=== PATIENT | female | born 1995 | race American Indian/Alaskan Native ===

== ENCOUNTER 2019-07-26 16:33 | Emergency (ER) | payer SELFPAY ==
[~2019-07-26] VITALS: Ht 175.3 cm; Wt 84.9 kg
[2019-07-26 16:34] VITALS: BP 142/86
[2019-07-26] MEDS ORDERED: VALT1TAB PO (16:39)
[2019-07-26] MEDS ORDERED: MULT-90 PO (16:39)
[2019-07-26] MEDS ORDERED: GNPTAB35 PO (16:39)
== END 2019-07-26 17:19 | disposition home or self-care (01) ==
LOC: M ED 16:33
DX: J02.8 Acute pharyngitis due to other specified organisms (principal); M54.2 Cervicalgia; R07.0 Pain in throat; T76.11XA Adult physical abuse, suspected, initial encounter; Y92.89 Other specified places as the place of occurrence of the external cause; Z79.899 Other long term (current) drug therapy

== ENCOUNTER 2019-10-31 23:11 | Emergency (ER) | payer OTHER ==
[~2019-10-31 23:11] MED LIST: GNPTAB35 PO; MULT-90 PO; VALT1TAB PO
[2019-11-01] MEDS ORDERED: METOCLOPRAMIDE INJ 10MG/2ML VIAL (J2765 PER 1) ONE (01:44)
[2019-11-01] MEDS ORDERED: diphenhydrAMINE 50MG/ML VIAL (J1200) ONE (01:44)
[2019-11-01] MEDS ORDERED: KETOROLAC 30 MG/ML 1ML VIAL ONE (01:44)
[2019-11-01] MEDS ORDERED: GI COCKTAIL 50ML BTL(HYOSCYAMINE/MAALOX/LIDOCAINE VISCOUS)(1:3:1) ONE (01:44)
== END 2019-11-01 03:40 | disposition home or self-care (01) ==
LOC: M ED 23:11
DX: G43.909 Migraine, unspecified, not intractable, without status migrainosus (principal); F12.10 Cannabis abuse, uncomplicated; Z79.899 Other long term (current) drug therapy
CPT/HCPCS: 96374; 96375; 99284; J1200; J1885; J2765

== ENCOUNTER 2019-11-08 17:48 | Emergency (ER) | payer OTHER ==
[2019-11-08] MEDS ORDERED: ISOVUE-370 76% 100ML VIAL ONE (20:00)
[2019-11-08] MEDS ORDERED: dexameTHASONE 4 MG/ML 1ML VIAL (J1100 PER 1MG) ONE (20:00)
[2019-11-08] MEDS ORDERED: ONDANSETRON 4MG/2ML VIAL ONE (20:10)
[2019-11-08] MEDS ORDERED: MORPHINE 2 MG/ML 1ML VIAL (J2270) ONE (20:10)
[2019-11-08] MEDS ORDERED: UNASYN 3 GM VIAL ONE (20:10)
[2019-12-27 20:54] LABS: BASO # 0.1 10^3/uL (0.0-0.2); BASO % 0.6 % (0.0-1.0); EOS # 0.3 10^3/uL (0.0-0.5); HEMATOCRIT 40.7 % (36.0-47.0); LYMPH # 2.5 10^3/uL (1.5-5.0); LYMPH % 22.7 % (24.0-44.0); MEAN CORPUSCULAR HEMOGLOBIN 27.4 pg (27.0-33.0); MEAN CORPUSCULAR HGB CONC 31.9 g/dl (32.0-36.5); MEAN CORPUSCULAR VOLUME 85.7 fl (80.0-96.0); MONO # 0.8 10^3/uL (0.0-0.8); MONO % 7.6 % (0.0-5.0); NEUTROPHILS # 7.1 10^3/uL (1.5-8.5); NEUTROPHILS % 65.8 % (36.0-66.0); PLATELET COUNT, AUTOMATED 310 10^3/uL (150-450); RED BLOOD COUNT 4.75 10^6/uL (4.00-5.40); WHITE BLOOD COUNT 10.8 10^3/uL (4.0-10.0)
[2019-12-27 20:55] LABS: ERYTHROCYTE SEDIMENTATION RATE 32 mm/hr (0-20)
[2020-01-31 05:01] LABS: ALT/SGPT 112 U/L (12-78); BILIRUBIN,DIRECT 0.2 MG/DL (0.0-0.2); BILIRUBIN,TOTAL 0.5 MG/DL (0.2-1.0); BLOOD UREA NITROGEN 10 MG/DL (7-18); C REACTIVE PROTEIN QUANTITATIV 2.19 MG/DL (0.00-0.30); CALCIUM LEVEL 9.2 MG/DL (8.5-10.1); CARBON DIOXIDE LEVEL 27 MEQ/L (21-32); CHLORIDE LEVEL 106 MEQ/L (98-107); CREATININE FOR GFR 0.78 MG/DL (0.55-1.30); GLOMERULAR FILTRATION RATE > 60.0 (>60); GLUCOSE, FASTING 77 MG/DL (70-100); POTASSIUM SERUM 3.9 MEQ/L (3.5-5.1); SODIUM LEVEL 138 MEQ/L (136-145)
[2020-01-31 05:04] LABS: HCG, SERUM QUALITATIVE NEGATIVE (NEGATIVE)
== END 2019-11-08 21:18 | disposition home or self-care (01) ==
LOC: M ED 17:48
DX: K04.7 Periapical abscess without sinus (principal); R11.0 Nausea; J01.00 Acute maxillary sinusitis, unspecified; J32.2 Chronic ethmoidal sinusitis; Z20.828 Contact with and (suspected) exposure to other viral communicable diseases; Z79.899 Other long term (current) drug therapy; Z11.59 Encounter for screening for other viral diseases
CPT/HCPCS: 70487; 80048; 80076; 83605; 84703; 85025; 85652; 86140; 87040; 96374; 96375; 99284; J1100; J2270; J2405; Q9967; U0002

== ENCOUNTER 2020-05-12 07:29 | Emergency (ER) | payer OTHER, SELFPAY ==
[~2020-05-12] VITALS: Ht 175.3 cm; Wt 81.8 kg
[2020-05-12] MEDS ORDERED: LEXA1TAB PO (07:34)
--- OUTSIDE RECORDS SUMMARY | 2020-05-12 07:34 | CCD ---
Author Author [facility] Address Unknown Phone Unavailable Support Name Relationship Address Phone EYAD COLON Next Of Kin [address] [place] [address] FABIEN MICHELE Next Of Kin [address] [place] [address] UE Next Of Kin Unknown Unavailable ANYA MUNGUIA Next Of Kin [address] [place] [address] Re-disclosure Warning The records that you are about to access may contain information from federally-assisted alcohol or drug abuse programs. If such information is present, then the following federally mandated warning applies: This information has been disclosed to you from records protected by federal confidentiality rules (42 CFR part 2). The federal rules prohibit you from making any further disclosure of this information unless further disclosure is expressly permitted by the written consent of the person to whom it pertains or as otherwise permitted by 42 CFR part 2. A general authorization for the release of medical or other information is NOT sufficient for this purpose. The Federal rules restrict any use of the information to criminally investigate or prosecute any alcohol or drug abuse patient.The records that you are about to access may contain highly sensitive health information, the redisclosure of which is protected by Article 27-F of the [facility] Public Health law. If you continue you may have access to information: Regarding HIV / AIDS; Provided by facilities licensed or operated by the [facility] Office of Mental Health; or Provided by the [facility] Office for People With Developmental Disabilities. If such information is present, then the following [facility] mandated warning applies: This information has been disclosed to you from confidential records which are protected by state law. State law prohibits you from making any further disclosure of this information without the specific written consent of the person to whom it pertains, or as otherwise permitted by law. Any unauthorized further disclosure in violation of state law may result in a fine or senior care sentence or both. A general authorization for the release of medical or other information is NOT sufficient authorization for further disc losure. Medications Medication Brand Name Start Date Product Form Dose Route Admi nistrative Instructions Pharmacy Instructions Status Indications Reaction Description Data Source(s) Escitalopram 5 MG Oral Tablet ESCITALOPRAM OXALATE 09/26/2019 12 :00:00 AM EDT tablet 30 TAKE ONE TABLET BY MOUTH EVERY M ORNING TAKE ONE TABLET BY MOUTH EVERY MORNING SOLD: 09/26/2019 Ibeth Ferrara Insurance Providers Payer name Policy type / Coverage type Policy ID Covered constitution party ID Covered constitution party's relationship to long Policy Long Plan Information [facility] [id number] SP [id number] SELF PAY ONLY [id number] SP [id number] [facility] [id number] P [id number]
--- OUTSIDE RECORDS SUMMARY | 2020-05-12 07:59 | CCD ---
Author Author [facility] Organization [facility] Address Unknown Phone Unavailable Support Name Relationship Address Phone EYAD COLON Next Of Kin [address] [place] [address] FABIEN MICHELE Next Of Kin [address] [place] [address] UE Next Of Kin Unknown Unavailable ANYA MUNGUIA Next Of Kin [address] [place] [address] [phone] Re-disclosure Warning The records that you are [...] is protected by Article 27-F of the [facility] Public Health law. If you continue you may have access to information: Regarding HIV / AIDS; Provided by facilities licensed or operated by the [facility] Office of Mental Health; or Provided by the [facility] Office for People With Developmental Disabilities. If such information is present, then the following [facility] mandated warning applies: This information has been [...] law may result in a fine or assisted sentence or both. A general authorization for [...] type / Coverage type Policy ID Covered libertarian ID Covered libertarian's relationship to long Policy Long Plan Information SELF PAY ONLY [id number] SP [id number] [facility] [id number] [facility] [id number]
--- NOTE | 2020-05-12 08:21 | REP ---
INDICATION: trauma. COMPARISON: None. TECHNIQUE: Three views including AP, tube angled, and lateral projections. FINDINGS: Sacrum and coccyx appear intact. No displacement, angulation, or fracture is seen. Presacral soft tissues do not appear widened. The SI joints are normally aligned. Symphysis pubis is intact. No pelvic or sacral fracture is seen. Psoas margins are symmetric. IMPRESSION: Negative radiographs of the sacrum and coccyx. No fracture seen. <Electronically signed by Fransisco Goins > 05/12/20 [id number]
[2020-05-12] MEDS ORDERED: methylPREDNISolone 125MG 2ML VIAL IM ONE (08:30)
[2020-05-12 08:35] VITALS: BP 127/74
== END 2020-05-12 08:45 | disposition home or self-care (01) ==
LOC: M ED 07:29
DX: S30.0XXA Contusion of lower back and pelvis, initial encounter (principal); W00.9XXA Unspecified fall due to ice and snow, initial encounter; Y92.099 Unspecified place in other non-institutional residence as the place of occurrence of the external cause; Y93.9 Activity, unspecified; Y99.9 Unspecified external cause status; M54.40 Lumbago with sciatica, unspecified side; F12.10 Cannabis abuse, uncomplicated; Z79.899 Other long term (current) drug therapy
CPT/HCPCS: 72220; 96372; 99283; J2930

== ENCOUNTER 2021-02-21 12:45 | Emergency (ER) | payer OTHER, SELFPAY ==
[~2021-02-21] VITALS: Ht 175.3 cm; Wt 85.9 kg
[~2021-02-21 12:45] MED LIST changes: +LEXA1TAB PO
--- OUTSIDE RECORDS SUMMARY | 2021-02-21 12:51 | CCD ---
Author Author [facility] Address Unknown Phone Unavailable Care Team Providers Care Store Sales Manager Name Role Phone Green COMPLAINT EVALUATION OFFICER COMPLAINT EVALUATION OFFICER, Amelia Unavailable Unavailable Green COMPLAINT EVALUATION OFFICER COMPLAINT EVALUATION OFFICER, Amelia Unavailable Unavailable Green COMPLAINT EVALUATION OFFICER COMPLAINT EVALUATION OFFICER, Amelia Unavailable Unavailable Green COMPLAINT EVALUATION OFFICER COMPLAINT EVALUATION OFFICER, Amelia Unavailable Unavailable Green COMPLAINT EVALUATION OFFICER COMPLAINT EVALUATION OFFICER, Amelia Unavailable Unavailable Dwello PA PA, Amira Unavailable Unavailable Dwello PA PA, Amira Unavailable Unavailable Dwello PA PA, Amira Unavailable Unavailable Dwello PA PA, Amira Unavailable Unavailable Dwello PA PA, Amira Unavailable Unavailable Dwello PA PA, Amira Unavailable Unavailable Dwello PA PA, Amira Unavailable Unavailable Re-disclosure Warning The records that you are [...] is protected by Article 27-F of the [place] Public Health law. If you continue you may have access to information: Regarding HIV / AIDS; Provided by facilities licensed or operated by the [facility] Office of Mental Health; or Provided by the [facility] Office for People With Developmental Disabilities. If such information is present, then the following [facility] mandated warning applies: This information has been [...] law may result in a fine or detention sentence or both. A general authorization for the release of medical or other information is NOT sufficient authorization for further disc losure. Family History Family Member Name Family Member Gender Family Member Status Date o f Status Description Data Source(s) Unknown Female Diagnosis 11/11/2020 12:00:00 AM EDT [facility] ([facility]) Unknown Female Diagnosis 11/11/2020 12:00:00 AM EDT [facility] ([facility]) Encounters Encounter Providers Location Date Indications Data Source(s ) [facility] [place] 01/13/2021 02:45:00 PM EDT - 01/13/2021 02:45:00 PM EDT Other sex counselingEncounter for oth general cnsl and advice on contraceptionUrgency of urinationFrequency of micturitionEncntr screen for infections w sexl mode of transmissEncounter for test, result negativeDysuriaHesitancy of micturition [facility] ([facility]) Other sex counseling Encounter for oth general cnsl and advic e on contraception Urgency of urination Frequency of micturition Encntr screen for infections w sexl mode of transmiss Encounter for test, result neg ative Dysuria Hesitancy of micturition [facility] Amelia Hare NP, NP PPNCEV [place] 11/11/2020 10:30:00 AM EDT - 11/11/2020 10:30:00 AM EDT Herpesviral vulvovaginitisOther sex counselingEncounter for oth general cnsl and advice on contraceptionEncounter for test, result negativeHuman immunodeficiency virus [HIV] counseling [facility] ([facility]) Herpesviral vulvovaginitis Other sex counseling Encounter for oth general cnsl and advic e on contraception Encounter for test, result neg ative Human immunodeficiency virus [HIV] couns eling Immunizations Vaccine Date Status Description Data Source(s) COVID-19 VACCINE Moderna 07/09/2020 12:00:00 AM EDT completed [facility] Vaccine Series Complete: YESThis Data wa s Submitted to [facility] Via flexReceipts. COVID-19 VACCINE Moderna 06/11/2020 12:00:00 AM EDT completed [facility] Vaccine Series Complete: NOThis Data was Submitted to [facility] Via flexReceipts. Medications Medication Brand Name Start Date Product Form Dose Route Admi nistrative Instructions Pharmacy Instructions Status Indications Reaction Description Data Source(s) NITROFURANTOIN, MACROCRYSTALS 25 MG / Ni trofurantoin, Monohydrate 75 MG Oral Capsule [Macrobid] Macrobid 100 mg capsule Macrobid 100 mg capsule 01/13/2021 12:00:00 AM EDT 1.00 {capsule} ORAL active nitrofurantoin, macrocrystals 25 MG / nitrofurantoin, monohydrate 75 MG Oral Capsule [Macrobid] [facility] ([facility]) Phenazopyridine hydrochloride 200 MG Ora l Tablet [Pyridium] Pyridium 200 mg tablet Pyridium 200 mg tablet 01/13/2021 12:00:00 AM EDT active phenazopyridine hydrochloride 200 MG Oral Tablet [Pyridium] [facility] ([facility]) valacyclovir 500 MG Oral Tablet valacyclovir 500 mg ta blet valacyclovir 500 mg tablet 11/11/2020 12:00:00 AM EDT active 1 tab po bid x 3d for outbreak (#6) [facility] ([facility]) Insurance Providers Payer name Policy type / Coverage type Policy ID Covered democrat ID Covered democrat's relationship to long Policy Long Plan Information SELF PAY ONLY [id number] SP [id number] [facility] [id number] P [id number] [facility] [id number] SP [id number] Problems, Conditions, and Diagnoses No Information Surgeries/Procedures Procedure Description Date Indications Data Source(s) CVR Wrapper Rewinder.Svc. STI / H 01/13/2021 12:00:00 AM EDT - 01/13/2021 12:00:00 AM EDT [facility] ([facility]) CVR Wrapper Rewinder.Svc. Contraceptive 01/13/2021 12 :00:00 AM EDT - 01/13/2021 12:00:00 AM EDT [facility] ([facility]) CVR Med.Svc. Method Initiation 12:00:00 AM EDT - 01/13/2021 12:00:00 AM EDT [facility] ([facility]) CVR Med.Svc. UTI Treatment 01/13/2021 12 :00:00 AM EDT - 01/13/2021 12:00:00 AM EDT [facility] ([facility]) CVR Med.Svc. Height/Weight 01/13/2021 12 :00:00 AM EDT - 01/13/2021 12:00:00 AM EDT [facility] ([facility]) CVR Blood Pressure 01/13/2021 12:00:00 AM EDT - 2020 12:00:00 AM EDT [facility] ([facility]) URINE CULTURE/COLONY COUNT 01/13/2021 12 :00:00 AM EDT - 01/13/2021 12:00:00 AM EDT [facility] ([facility]) N.GONORRHOEAE, URINE 01/13/2021 12:00:00 AM EDT - 01/13/2021 12:00:00 AM EDT [facility] ([facility]) CHYLMD TRACH, URINE 01/13/2021 12:00:00 AM EDT - 01/13 12:00:00 AM EDT [facility] ([facility]) OFFICE VISIT, EST 01/13/2021 12:00:00 AM EDT - 01/13/2 021 12:00:00 AM EDT [facility] ([facility]) URINE TEST 01/13/2021 12:00:00 AM EDT - 01/13/2021 12:00:00 AM EDT [facility] ([facility]) URINALYSIS NONAUTO W/O SCOPE 01/13/2021 12:00:00 AM EDT - 01/13/2021 12:00:00 AM EDT [facility] ([facility]) CVR Wrapper Rewinder.Svc. STI / H 11/11/2020 12:00:00 AM EDT - 11/11/2020 12:00:00 AM EDT [facility] ([facility]) CVR Wrapper Rewinder.Svc. Other 11/11/2020 12:00:00 AM EDT - 2020 12:00:00 AM EDT [facility] ([facility]) CVR Wrapper Rewinder.Svc. Contraceptive 11/11/2020 12 :00:00 AM EDT - 11/11/2020 12:00:00 AM EDT [facility] ([facility]) CVR Med.Svc. Height/Weight 11/11/2020 12 :00:00 AM EDT - 11/11/2020 12:00:00 AM EDT [facility] ([facility]) CVR Blood Pressure 11/11/2020 12:00:00 AM EDT - 2020 12:00:00 AM EDT [facility] ([facility]) HCS Without Test 11/11/2020 12:00:00 AM EDT - 11/12/19 21 12:00:00 AM EDT [facility] ([facility]) OFFICE VISIT, NEW 11/11/2020 12:00:00 AM EDT - 021 12:00:00 AM EDT [facility] ([facility]) URINE TEST 11/11/2020 12:00:00 AM EDT - 11/11/2020 12:00:00 AM EDT [facility] ([facility]) Results ID Date Data Source [id number] 01/13/2021 03:07:33 PM EDT [facility] ([facility]) Name Value Range Interpretation Code Description Data Kalyani rce(s) Supporting Document(s) NegativeLot: [id number]: 05/16/2022 High Sensitivity Urine Test [facility] ([facility]) ID Date Data Source [id number] 01/13/2021 03:06:26 PM EDT [facility] ([facility]) Name Value Range Interpretation Code Description Data Kalyani rce(s) Supporting Document(s) Color: yellow; Glucose: nega tive; Blood: negative; pH: 7.0; Protein: trace; Nitrite: negative; Leukocytes: negative Abnormal (appl ies to non-numeric results) Urine Dipstick [facility] ([facility]) ID Date Data Source [id number] 01/13/2021 12:00:00 AM EDT [facility] ([facility]) Name Value Range Interpretation Code Description Data Kalyani rce(s) Supporting Document(s) Negative Normal (applies to non-numeric resul ts) Urine CT/GC Combo - GC [facility] ([facility]) : NoThis information has been di sclosed to you from confidential records which are protected by law. Privacy laws prohibityou from making any further disclosure of this information without the specific written consent of the person to whom itpertains, or otherwise permitted by law. Any unauthorized further disclosure in violation of the law may result in a fineor detention sentence or both. A general authorization for the release of medical or other information is not, except inlimited circumstances set forth in this part, sufficient authorization for further disclosure.This document contains private and confidential health information protected by state and federal law. If youhave received this document in error, please call the Electrical Laboratory Technician for [facility] at ext [phone] [email or web address] Performed by: TANIA ([id number]) ID Date Data Source [id number] 01/13/2021 12:00:00 AM EDT [facility] ([facility]) Name Value Range Interpretation Code Description Data Kalyani rce(s) Supporting Document(s) Negative Normal (applies to non-numeric resul ts) Urine CT/GC Combo - CT [facility] ([facility]) ID Date Data Source [id number] 11/11/2020 11:11:07 AM EDT [facility] ([facility]) Name Value Range Interpretation Code Description Data Kalyani rce(s) Supporting Document(s) NegativeLot: [id number]: 03/28/2022 High Sensitivity Urine Test [facility] ([facility]) Procedure Social History Code Duration Value Status Description Data Source(s ) Smoking 01/13/2021 12:00:00 AM EDT Never smoker completed Never s moker [facility] ([facility]) 11/11/2020 12:00:00 AM EDT Current non-smoker completed C urrent non-smoker [facility] ([facility]) Vital Signs ID Date Data Source UNK Name Value Range Interpretation Code Description Data Source(s) Body height 176.53 cm 176.53 cm [facility]) Body weight 86.636 kg 86.636 kg [facility] ([facility]) Systolic blood pressure 118 mm[Hg] 118 mm[Hg] N [facility] ([facility]) Diastolic blood pressure 80 mm[Hg] 80 mm[Hg] [facility] ([facility]) Body mass index (BMI) [Ratio] 27.80 kg/m2 Overweight 27.80 kg/m2 [facility]) Body height 176.53 cm 176.53 cm [facility] ([facility]) Body weight 84.096 kg 84.096 kg [facility] ([facility]) Systolic blood pressure 117 mm[Hg] 117 mm[Hg] N [facility] ([facility]) Diastolic blood pressure 70 mm[Hg] 70 mm[Hg] [facility] ([facility]) Body mass index (BMI) [Ratio] 26.99 kg/m2 Overweight 26.99 kg/m2 [facility] ([facility]) Patient Treatment Plan of Care Planned Activity Planned Date Details Description Data Source (s) Phenazopyridine hydrochloride 200 MG Oral Tablet [Pyri dium] 01/13/2021 12:00:00 AM EDT [facility] NITROFURANTOIN, MACROCRYSTALS 25 MG / Ni trofurantoin, Monohydrate 75 MG Oral Capsule [Macrobid] 01/13/2021 12:00:00 AM EDT Ne [facility] ([facility]) valacyclovir 500 MG Oral Tablet 11/11/2020 12:00:00 AM EDT [facility] ([facility])
--- OUTSIDE RECORDS SUMMARY | 2021-02-21 12:51 | CCD | Continuity of Care Document ---
Author Author [facility] Organization [facility] Address Unknown Phone Unavailable Care Team Providers Care .Net Developer Name Role Phone Dwello Amira EARL Unavailable Unavailable Allergies, Adverse Reactions, Alerts Substance Reaction Status Criticality No Known Allergies Active No Information Medications Medication Instructions Dosage Effective Dates (start - stop) Sta tus Comments Macrobid 100 mg capsule take 1 capsule by oral route every 12 hours with food 100 MG - Active Pyridium 200 mg tablet take 1 tablet by oral route 3 times every day after meals as needed x 2 days - Active valacyclovir 500 mg tablet 1 tab po bid x 3d for outbreak (#6) - Active Lexapro 20 mg tablet take 1 tablet by oral route every day 20 MG - Active buspirone 30 mg tablet take 1 tablet by oral route 2 times every da y 30 MG - Active Problems Condition Effective Dates (start - stop) Clinical Status C omments Hesitancy of micturition Dysuria Encounter for test, result negative Encntr screen for infections w sexl mode of transmiss Frequency of micturition Urgency of urination Encounter for oth general cnsl and advice on contraception Other sex counseling - Human immunodeficiency virus [HIV] counseling Encounter for test, result negative Encounter for oth general cnsl and advice on contraception Other sex counseling Herpesviral vulvovaginitis Procedures Procedure Date URINALYSIS NONAUTO W/O SCOPE URINE TEST OFFICE VISIT, EST CHYLMD TRACH, URINE N.GONORRHOEAE, URINE URINE CULTURE/COLONY COUNT CVR Blood Pressure CVR Med.Svc. Height/Weight CVR Med.Svc. UTI Treatment CVR Med.Svc. Method Initiation CVR Director Of Curriculum And Instruction.Svc. Contraceptive CVR Director Of Curriculum And Instruction.Svc. STI / H Results Test Name Date and Time Measure Units Reference Range Abnormal Flag St atus Comments Panel Description: Chlamydia trachomatis rRNA [Presence] in Specimen by GRISEL with probe detection Final Urine CT/GC Combo - CT 00:00:00 Negative N Final Performed by:
CDD ([id number])

Panel Description: Amplified GC - Urine Final Urine CT/GC Combo - GC 00:00:00 Negative N Final : NoThis information has been disclosed to you from confidential records which are protected by law. Privacy laws prohibityou from making any further disclosure of this information without the specific written consent of the person to whom itpertains, or otherwise permitted by law. Any unauthorized further disclosure in violation of the law may result in a fineor senior care sentence or both. A general authorization for the release of medical or other information is not, except inlimited circumstances set forth in this part, sufficient authorization for further disclosure.This document contains private and confidential health information protected by state and federal law. If youhave received this document in error, please call the Super[employer] for CDD at ext [phone] ore-mail [email or web address]

Performed by:
CDD ([id number])

Panel Description: High Sensitivity Urine Test Fi nal High Sensitivity Urine Test 15:07:33 N egativeLot: [id number]: 05/16/2022 Final Panel Description: Urine Dipstick Final Urine Dipstick 15:06:26 Color: yellow; Gluc ose: negative; Blood: negative; pH: 7.0; Protein: trace; Nitrite: negative; Leukocytes: negative A Final Advance Directives Directive Yes / No Effective Date File Name No Information Encounters Encounter Description Practice Location Reason(s) For Visit Diagnose s Date Provider Providers Copied on Encounter [facility]IT, [facility], [address] [place] [address], [address] [place] [address], tel:[phone] [facility] Urinary Symptoms ( F) (chief complaint) Hesitancy of micturitionDysuriaEncounter for test, result negativeEncntr screen for infections w sexl mode of transmissFrequency of micturitionUrgency of urinationEncounter for oth general cnsl and advice on contraceptionOther sex counseling Dave Pollard. [address] [place] [address], [id number], . tel:[phone] Referring Provider: Amira Acosta, [address] [place] [address], [id number]. tel:[phone] [facility], [address] [place] [address], [id number], tel:[phone] [facility] Human immunodeficie ncy virus [HIV] counselingEncounter for test, result negativeEncounter for oth general cnsl and advice on contraceptionOther sex counselingHerpesviral vulvovaginitis Payam Jenkins. [address] [place] [address], [id number], . tel:[phone] Referring Provider: Amelia Hare, [address] [place] [address], [id number]. tel:[phone] Family History Family Member Diagnosis Age At Onset Paternal grandmother fibrosis Maternal grandmother Cancer, breast Paternal grandmother glaucoma Immunizations Vaccine Date Status Comments No Information Payers Payer name Insurance type Covered republican ID Authorization(s ) FPBP PRESUMPTIVE ELIGIBILITY [id number] Social History Type Description Quantity Date Captured Comments Alcohol Use Details Unknown Caffeine Use Details Unknown Tobacco Use Status No Information Smoking Status Never smoker Oct-18-2021 Sex Female Vital Signs Date / Time: Height Weight BMI Pulse Rate Blood Pressure Temperatu re Respiratory Rate Body Surface Area Head Circumference BMI percentile Pulse Ox In haled Ox 3:08 PM 69.50 in 191.00 lbs 27.80 kg/meter(2) 118/80 m m[Hg] Chief Complaint And Reason For Visit Most recent encounter only, dated 01/13/2021 14:45'. Urinary Symptoms (F) (chief complaint) Reason For Referral Reason For Referral No Information Plan Of Treatment Date Type Action Status No Information History Of Present Illness Encounter Date Complaint History Of Present I llness No Information Functional Status Date Functional Assessment No Information Medications Administered Medication Instructions Dosage Effective Dates (start - stop) Sta tus Comments No Information Instructions Date Instruction Additional Informati on No Information Assessments Type Assessment Date assessment Hesitancy of micturition assessment Dysuria assessment Encounter for test, result neg ative assessment Encntr screen for infections w sexl mode of transmiss assessment Frequency of micturition assessment Urgency of urination assessment Encounter for oth general cnsl and advic e on contraception Goals Health Concern Goal Type Priority Status Date No Information Medical Equipment Description Device [place] Device Identifier Effective Jacobo es (start - stop) Status No Information Mental Status Date Cognitive Assessment Orientation - Oriented to ti me, place, person, situation.Normal Orientation Health Concerns Observation Date No Information Concern Status Date No Information Physical Examination Exam Findings Details Abdomen Normal CVA tenderness - Non e. Neurological Normal Level of consciousne ss - Normal. Orientation - Normal. Psychiatric Normal Orientation - [place] ed to time, place, person & situation.
--- OUTSIDE RECORDS SUMMARY | 2021-02-21 12:51 | CCD | Continuity of Care Document ---
Author Author [facility] Organization [facility] Address Unknown Phone Unavailable Care Team Providers Care K 9 Handler/ Deputy Name Role Phone Payam SCRAP PICKER, Amelia Jenkins Unavailable Unavailable Allergies, Adverse Reactions, Alerts Substance Reaction Status Criticality No Known Allergies Active No Information Medications Medication Instructions Dosage Effective Dates (start - stop) Sta tus Comments valacyclovir 500 mg tablet 1 tab po bid x 3d for outbreak (#6) - Active Lexapro 20 mg tablet take 1 tablet by oral route every day 20 MG - Active buspirone 30 mg tablet take 1 tablet by oral route 2 times every da y 30 MG - Active Problems Condition Effective Dates (start - stop) Clinical Status C omments Human immunodeficiency virus [HIV] counseling Encounter for test, result negative Encounter for oth general cnsl and advice on contraception Other sex counseling Herpesviral vulvovaginitis Procedures Procedure Date URINE TEST OFFICE VISIT, NEW HCS Without Test CVR Blood Pressure CVR Med.Svc. Height/Weight CVR Risk And Insurance Manager.Svc. Contraceptive CVR Risk And Insurance Manager.Svc. Other CVR Risk And Insurance Manager.Svc. STI / H Results Test Name Date and Time Measure Units Reference Range Abnormal Flag St atus Comments Panel Description: High Sensitivity Urine Test Fi nal High Sensitivity Urine Test 11:11:07 N egativeLot: [id number]: 03/28/2022 Final Advance Directives Directive Yes / No Effective Date File Name No Information Encounters Encounter Description Practice Location Reason(s) For Visit Diagnose s Date Provider Providers Copied on Encounter OFFICE VISIT, NEW [facility], [address], [place], [id number], [place] tel:[phone] [facility] Genital Lesions (c hief complaint) Human immunodeficiency virus [HIV] couns elingEncounter for test, result negativeEncounter for oth general cnsl and advice on contraceptionOther sex counselingHerpesviral vulvovaginitis Payam Jenkins. [address], [place], [id number], [place]. tel:[phone] Referring Provider: Amelia Hare, [address], [place], [id number]. tel:[phone] Family History Family Member Diagnosis Age At Onset Paternal grandmother fibrosis Maternal grandmother Cancer, breast Paternal grandmother glaucoma Immunizations Vaccine Date Status Comments No Information Payers Payer name Insurance type Covered constitution party ID Authorization(s ) FPBP PRESUMPTIVE ELIGIBILITY [id number] Social History Type Description Quantity Date Captured Comments Alcohol Use Details Unknown Caffeine Use Details Unknown Tobacco Use Status Current non-smoker Smoking Status Never smoker Non-Smoking Tobacco Use Details : No Details Available : No Details Available Sex Female Vital Signs Date / Time: Height Weight BMI Pulse Rate Blood Pressure Temperatu re Respiratory Rate Body Surface Area Head Circumference BMI percentile Pulse Ox In haled Ox 11:07 AM 69.50 in 185.40 lbs 26.99 kg/meter(2) 117/7 0 mm[Hg] Chief Complaint And Reason For Visit Most recent encounter only, dated '11/11/2020 10:30'. Genital Lesions (chief complaint) Reason For Referral Reason For [...] No Information Assessments Type Assessment Date assessment Human immunodeficiency virus [HIV] couns eling assessment Encounter for test, result neg ative assessment Encounter for oth general cnsl and advic e on contraception assessment Other sex counseling assessment Herpesviral vulvovaginitis Goals Health Concern Goal Type Priority Status Date No Information Medical Equipment Description Device [place] Device Identifier Effective Jacobo es (start - stop) Status No Information Mental Status Date Cognitive Assessment Orientation - Oriented to ti me, place, person, situation.Normal Orientation Health Concerns Observation Date No Information Concern Status Date No Information Physical Examination Exam Findings Details Neurological Normal Level of consciousne ss - Normal. Orientation - Normal. Psychiatric Normal Orientation - [place] ed to time, place, person & situation.
[2021-02-21] MEDS ORDERED: KETOROLAC TROMETHAMINE 10 MG TAB PO ONE ×2 (16:25→16:40)
[2021-02-21] MEDS ORDERED: AUGMENTIN 875 MG TAB PO ONE (16:25)
[2021-02-21] MEDS ORDERED: cefTRIAXone SOD 1GM VIAL (J0696 PER 250MG) IM ONE (16:30)
[2021-02-21] MEDS ORDERED: LIDOCAINE 1% SDV 5ML VIAL DILUENT ONE (16:30)
[2021-02-21] MEDS ORDERED: methylPREDNISolone 125MG 2ML VIAL IM ONE (16:30)
[2021-02-21] MEDS ORDERED: cefTRIAXone SOD 1 GM in D5W MINI-BAG PLUS 50 ML IV ONE (16:30)
[2021-02-21] MEDS ORDERED: AUGM875T28 PO (16:40)
[2021-02-21] MEDS ORDERED: KETO10TAB PO (16:49)
--- OUTSIDE RECORDS SUMMARY | 2021-02-21 16:54 | CCD ---
Author Author [facility] Organization [facility] Address Unknown Phone Unavailable Care Team Providers Care Levers Lace Machine Operator Name Role Phone Green PER DIEM PHYSICAL THERAPIST PER DIEM PHYSICAL THERAPIST, Amelia Unavailable Unavailable Green PER DIEM PHYSICAL THERAPIST PER DIEM PHYSICAL THERAPIST, Amelia Unavailable Unavailable Green PER DIEM PHYSICAL THERAPIST PER DIEM PHYSICAL THERAPIST, Amelia Unavailable Unavailable Green PER DIEM PHYSICAL THERAPIST PER DIEM PHYSICAL THERAPIST, Amelia Unavailable Unavailable Green PER DIEM PHYSICAL THERAPIST PER DIEM PHYSICAL THERAPIST, Amelia Unavailable Unavailable Dwello PA PA, Amira [...] is protected by Article 27-F of the [place] State Public Health law. If you continue you may have access to information: Regarding HIV / AIDS; Provided by facilities licensed or operated by the [facility] Office of Mental Health; or Provided by the [facility] Office for People With Developmental Disabilities. If such information is present, then the following [facility] mandated warning applies: This information [...] law may result in a fine or alf sentence or both. A general authorization for the release of medical or other information is NOT sufficient authorization for further disc losure. Family History Family Member Name Family Member Gender Family Member Status Date o f Status Description Data Source(s) Unknown Female Diagnosis 11/11/2020 12:00:00 AM EDT [facility] ([facility]) Unknown Female Diagnosis 11/11/2020 12:00:00 AM EDT [facility] ([facility]) Encounters Encounter Providers Location Date Indications Data Source(s ) [facility] Attender: Amira EARL [facility] [place] 01/13/2021 02:45:00 PM EDT - 01/13/2021 02:45:00 PM EDT Other sex counselingEncounter for oth general cnsl and advice on contraceptionUrgency of urinationFrequency of micturitionEncntr screen for infections w sexl mode of transmissEncounter for test, result negativeDysuriaHesitancy of micturition [facility] ([facility]) Other sex counseling Encounter for oth general cnsl and advic e on contraception Urgency of urination Frequency of micturition Encntr screen for infections w sexl mode of transmiss Encounter for test, result neg ative Dysuria Hesitancy of micturition OutpatientOFFICE VISIT, NEW Attender: Amelia Hare NP, NP [facility] [place] 11/11/2020 10:30:00 AM EDT - 11/11/2020 10:30:00 AM EDT Herpesviral vulvovaginitisOther sex counselingEncounter for oth general cnsl and advice on contraceptionEncounter for test, result negativeHuman immunodeficiency virus [HIV] counseling [facility] ([facility]) Herpesviral vulvovaginitis Other sex counseling Encounter for oth general cnsl and advic e on contraception Encounter for test, result neg ative Human immunodeficiency virus [HIV] couns eling Immunizations Vaccine Date Status Description Data Source(s) COVID-19 VACCINE Moderna 07/09/2020 12:00:00 AM EDT completed [facility] Vaccine Series Complete: YESThis Data wa s Submitted to [facility] Via [employer]. COVID-19 VACCINE Moderna 06/11/2020 12:00:00 AM EDT completed [facility] Vaccine Series Complete: NOThis Data was Submitted to [facility] Via [employer]. Medications Medication Brand Name Start Date Product [...] Capsule [Macrobid] [facility] ([facility]) Phenazopyridine hydrochloride 200 MG Ora l Tablet [Pyridium] Pyridium 200 mg tablet Pyridium 200 mg tablet 01/13/2021 12:00:00 AM EDT active phenazopyridine hydrochloride 200 MG Oral Tablet [Pyridium] [facility] ([facility]) valacyclovir 500 MG Oral Tablet valacyclovir 500 mg ta blet valacyclovir 500 mg tablet 11/11/2020 12:00:00 AM EDT active 1 tab po bid x 3d for outbreak (#6) [facility] ([facility]) Insurance Providers Payer name Policy type / Coverage type Policy ID Covered democrat ID Covered democrat's relationship to long Policy Long Plan Information [facility] [id number] SP [id number] SELF PAY ONLY [id number] SP [id number] [facility] [id number] P [id number] [facility] [id number] SP [id number] Problems, Conditions, and Diagnoses No Information Surgeries/Procedures Procedure Description Date Indications Data Source(s) CVR Optical Model Maker And Tester.Svc. STI / H 01/13/2021 12:00:00 AM EDT - 01/13/2021 12:00:00 AM EDT [facility] ([facility]) CVR Optical Model Maker And Tester.Svc. Contraceptive 01/13/2021 12 :00:00 AM EDT - 01/13/2021 12:00:00 AM EDT [facility] ([facility]) CVR Med.Svc. Method Initiation 12:00:00 AM EDT - 01/13/2021 12:00:00 AM EDT [facility] ([facility]) CVR Med.Svc. UTI Treatment 01/13/2021 12 :00:00 AM EDT - 01/13/2021 12:00:00 AM EDT [facility] ([facility]) CVR Med.Svc. Height/Weight 01/13/2021 12 :00:00 AM EDT - 01/13/2021 12:00:00 AM EDT [facility] ([facility]) CVR Blood Pressure 01/13/2021 12:00:00 AM EDT - 2020 12:00:00 AM EDT [facility] ([facility]) URINE CULTURE/COLONY COUNT 01/13/2021 12 :00:00 AM EDT - 01/13/2021 12:00:00 AM EDT [facility] ([facility]) N.GONORRHOEAE, URINE 01/13/2021 12:00:00 AM EDT - 01/13/2021 12:00:00 AM EDT [facility] ([facility]) CHYLMD TRACH, URINE 01/13/2021 12:00:00 AM EDT - 01/13 12:00:00 AM EDT [facility] ([facility]) OFFICE VISIT, EST 01/13/2021 12:00:00 AM EDT - 01/13/2 021 12:00:00 AM EDT [facility] ([facility]) URINE TEST 01/13/2021 12:00:00 AM EDT - 01/13/2021 12:00:00 AM EDT [facility] ([facility]) URINALYSIS NONAUTO W/O SCOPE 01/13/2021 12:00:00 AM EDT - 01/13/2021 12:00:00 AM EDT [facility] ([facility]) CVR Optical Model Maker And Tester.Svc. STI / H 11/11/2020 12:00:00 AM EDT - 11/11/2020 12:00:00 AM EDT [facility] ([facility]) CVR Optical Model Maker And Tester.Svc. Other 11/11/2020 12:00:00 AM EDT - 2020 12:00:00 AM EDT [facility] ([facility]) CVR Optical Model Maker And Tester.Svc. Contraceptive 11/11/2020 12 :00:00 AM EDT - 11/11/2020 12:00:00 AM EDT [facility] ([facility]) CVR Med.Svc. Height/Weight 11/11/2020 12 :00:00 AM EDT - 11/11/2020 12:00:00 AM EDT [facility] ([facility]) CVR Blood Pressure 11/11/2020 12:00:00 AM EDT - 2020 12:00:00 AM EDT [facility] ([facility]) HCS Without Test 11/11/2020 12:00:00 AM EDT - 11/12/19 21 12:00:00 AM EDT [facility] ([facility]) OFFICE VISIT, NEW 11/11/2020 12:00:00 AM EDT - 021 12:00:00 AM EDT [facility] ([facility]) URINE TEST 11/11/2020 12:00:00 AM EDT - 11/11/2020 12:00:00 AM EDT [facility] ([facility]) Results ID Date Data Source [id number] 01/13/2021 03:07:33 PM EDT [facility] ([facility]) Name Value Range Interpretation Code Description Data Kalyani rce(s) Supporting Document(s) NegativeLot: [id number]: 05/16/2022 High Sensitivity Urine Test [facility] ([facility]) ID Date Data Source [id number] 01/13/2021 03:06:26 PM EDT [facility] ([facility]) Name Value Range Interpretation Code Description Data Kalyani rce(s) Supporting Document(s) Color: yellow; Glucose: nega tive; Blood: negative; pH: 7.0; Protein: trace; Nitrite: negative; Leukocytes: negative Abnormal (appl ies to non-numeric results) [facility]rine Dipstick [facility] ID Date Data Source [id number] 01/13/2021 12:00:00 AM EDT [facility] ([facility]) Name Value Range Interpretation Code Description Data [facility] rce(s) Supporting Document(s) Negative Normal (applies to non-numeric resul ts) Urine CT/GC Combo - GC [facility] ([facility]) : NoThis information has been di sclosed to you from confidential records which are protected by law. Privacy laws prohibityou from making any further disclosure of this information without the specific written consent of the person to whom itpertains, or otherwise permitted by law. Any unauthorized further disclosure in violation of the law may result in a fineor alf sentence or both. A general authorization for the release of medical or other information is not, except inlimited circumstances set forth in this part, sufficient authorization for further disclosure.This document contains private and confidential health information protected by state and federal law. If youhave received this document in error, please call the Coin Counter [employer] Wrapper for CDD at ext [phone] ore-mail [email or web address] Performed by: TANIA ([id number]) ID Date Data Source [id number] 01/13/2021 12:00:00 AM EDT [facility] ([facility]) Name Value Range Interpretation Code Description Data Kalyani rce(s) Supporting Document(s) Negative Normal (applies to non-numeric resul ts) Urine CT/GC Combo - CT [facility] ([facility]) ID Date Data Source [id number] 11/11/2020 11:11:07 AM EDT [facility] ([facility]) Name Value Range Interpretation Code Description Data Kalyani rce(s) Supporting Document(s) NegativeLot: [id number]: 03/28/2022 High Sensitivity Urine Test [facility] ([facility]) Procedure Social History Code Duration Value Status Description Data Source(s ) Smoking 01/13/2021 12:00:00 AM EDT Never smoker completed Never s moker [facility] ([facility]) 11/11/2020 12:00:00 AM EDT Current non-smoker completed C urrent non-smoker [facility] ([facility]) Vital Signs ID Date Data Source UNK Name Value Range Interpretation Code Description Data Source(s) Body height 176.53 cm 176.53 cm [facility] Body weight 86.636 kg 86.636 kg [facility] ([facility] [place] [facility]) Systolic blood pressure 118 mm[Hg] 118 mm[Hg] N [facility] ([facility]) Diastolic blood pressure 80 mm[Hg] 80 mm[Hg] [facility] ([facility]) Body mass index (BMI) [Ratio] 27.80 kg/m2 Overweight 27.80 kg/m2 [facility] ([facility]) Body height 176.53 cm 176.53 cm [facility] Body weight 84.096 kg 84.096 kg [facility] [place]) Systolic blood pressure 117 mm[Hg] 117 mm[Hg] N [facility] ([facility]) Diastolic blood pressure 70 mm[Hg] 70 mm[Hg] [facility] ([facility]) Body mass index (BMI) [Ratio] 26.99 kg/m2 Overweight 26.99 kg/m2 [facility] ([facility]) Patient Treatment Plan of Care Planned Activity Planned Date Details Description Data Source (s) Phenazopyridine hydrochloride 200 MG Oral Tablet [Pyri dium] 01/13/2021 12:00:00 AM EDT [facility] NITROFURANTOIN, MACROCRYSTALS 25 MG / Ni trofurantoin, Monohydrate 75 MG Oral Capsule [Macrobid] 01/13/2021 12:00:00 AM EDT Ne [facility] ([facility]) valacyclovir 500 MG Oral Tablet 11/11/2020 12:00:00 AM EDT [facility] ([facility])
[2021-02-21 17:02] VITALS: BP 122/84
== END 2021-02-21 17:03 | disposition home or self-care (01) ==
LOC: M ED 12:45
DX: K04.7 Periapical abscess without sinus (principal); K02.9 Dental caries, unspecified; F17.200 Nicotine dependence, unspecified, uncomplicated; B00.9 Herpesviral infection, unspecified; Z90.49 Acquired absence of other specified parts of digestive tract; Z98.890 Other specified postprocedural states
CPT/HCPCS: 96372; 99283; J0696; J2930

== ENCOUNTER 2021-04-15 17:05 | Emergency (ER) | payer OTHER, SELFPAY ==
[~2021-04-15] VITALS: Ht 175.3 cm; Wt 85.7 kg
[~2021-04-15 17:05] MED LIST changes: +AUGM875T28 PO; +KETO10TAB PO
[2021-04-15 21:55] LABS: BASO # 0.1 10^3/uL (0.0-0.2); BASO % 0.6 % (0.0-1.0); EOS # 0.2 10^3/uL (0.0-0.5); EOS % 1.9 % (0.0-3.0); HEMATOCRIT 36.1 % (36.0-47.0); HEMOGLOBIN 11.3 g/dl (12.0-15.5); LYMPH # 2.5 10^3/uL (1.5-5.0); LYMPH % 23.1 % (24.0-44.0); MEAN CORPUSCULAR HEMOGLOBIN 25.6 pg (27.0-33.0); MEAN CORPUSCULAR HGB CONC 31.3 g/dl (32.0-36.5); MEAN CORPUSCULAR VOLUME 81.9 fl (80.0-96.0); MONO # 0.9 10^3/uL (0.0-0.8); MONO % 7.9 % (2.0-8.0); NEUTROPHILS # 7.1 10^3/uL (1.5-8.5); NEUTROPHILS % 66.2 % (36.0-66.0); PLATELET COUNT, AUTOMATED 377 10^3/uL (150-450); RED BLOOD COUNT 4.41 10^6/uL (4.00-5.40); WHITE BLOOD COUNT 10.7 10^3/uL (4.0-10.0)
[2021-04-15 22:40] LABS: BLOOD UREA NITROGEN 10 MG/DL (7-18); CALCIUM LEVEL 9.3 MG/DL (8.5-10.1); CARBON DIOXIDE LEVEL 26 MEQ/L (21-32); CHLORIDE LEVEL 108 MEQ/L (98-107); CREATININE FOR GFR 0.74 MG/DL (0.55-1.30); GLOMERULAR FILTRATION RATE > 60.0 (>60); GLUCOSE, FASTING 87 MG/DL (70-100); HCG, SERUM QUANTITATIVE 1224 MIU/ML; POTASSIUM SERUM 4.1 MEQ/L (3.5-5.1); SODIUM LEVEL 140 MEQ/L (136-145)
[2021-04-15] MEDS ORDERED: MORPHINE 4 MG/ML 1ML VIAL/SYRINGE (J2270) IV ONE (23:40)
[2021-04-15] MEDS ORDERED: ONDANSETRON 4MG/2ML VIAL IV ONE (23:40)
[2021-04-16] MEDS ORDERED: PERC5TAB12 PO (01:34)
[2021-04-16] MEDS ORDERED: OXYCODONE/APAP 5MG/325MG(BULK FOR ED) 1 TABLET PO ONE (01:35)
[2021-04-16 01:43] VITALS: BP 153/85
== END 2021-04-16 02:09 | disposition home or self-care (01) ==
LOC: M ED 17:05
DX: O04.89 (Induced) termination of pregnancy with other complications (principal); N93.8 Other specified abnormal uterine and vaginal bleeding
CPT/HCPCS: 76830; 76856; 80048; 84702; 85025; 86850; 86900; 86901; 93976; 96374; 96375; 99284; J2270; J2405

== ENCOUNTER 2021-08-30 14:25 | Emergency (ER) | payer OTHER ==
[~2021-08-30] VITALS: Ht 175.3 cm; Wt 80.0 kg
[~2021-08-30 14:25] MED LIST changes: +PERC5TAB12 PO
[2021-08-30] MEDS ORDERED: ACET-683 PO (14:37)
[2021-08-30] MEDS ORDERED: KETOROLAC TROMETHAMINE 10 MG TAB PO ONE (16:20)
[2021-08-30] MEDS ORDERED: AUGMENTIN 875 MG TAB PO ONE (16:20)
[2021-08-30] MEDS ORDERED: LIDOCAINE VISCOUS 2% SOLN 15ML UDC SSP ONE (16:20)
[2021-08-30] MEDS ORDERED: AMOX875T2 PO (16:25)
[2021-08-30] MEDS ORDERED: LIDO2SOL17 PO (16:25)
[2021-08-30] MEDS ORDERED: KETO10TAB PO (16:25)
[2021-08-30 16:34] VITALS: BP 116/71
== END 2021-08-30 16:37 | disposition home or self-care (01) ==
LOC: M ED 14:25
DX: K08.531 Fractured dental restorative material with loss of material (principal); J45.909 Unspecified asthma, uncomplicated; F41.9 Anxiety disorder, unspecified; F43.10 Post-traumatic stress disorder, unspecified; F12.10 Cannabis abuse, uncomplicated; Z79.899 Other long term (current) drug therapy

== ENCOUNTER → 2021-09-24 | Outpatient (REF) | payer OTHER ==
[~2021-09-24] MED LIST changes: +ACET-683 PO; +AMOX875T2 PO; +LIDO2SOL17 PO
[2021-09-24 16:30] LABS: HEMATOCRIT 35.1 % (36.0-47.0); HEMOGLOBIN 11.1 g/dl (12.0-15.5); MEAN CORPUSCULAR HGB CONC 31.6 g/dl (32.0-36.5); MEAN CORPUSCULAR VOLUME 75.8 fl (80.0-96.0); PLATELET COUNT, AUTOMATED 378 10^3/uL (150-450); RED BLOOD COUNT 4.63 10^6/uL (4.00-5.40); WHITE BLOOD COUNT 9.1 10^3/uL (4.0-10.0)
[2021-09-24 17:46] LABS: HCG, SERUM QUANTITATIVE 46237 MIU/ML; HEPATITIS B SURFACE ANTIGEN NEGATIVE (NEGATIVE); HEPATITIS C VIRUS ABY INDEX 0.1 INDEX (<0.8); HIV 1&2 SCREEN CENTAUR NEGATIVE (NEGATIVE)
== END ==
LOC: M LAB REF 16:02
PROVIDERS: ATTEND Obstetrics & Gynecology
DX: Z32.01 Encounter for pregnancy test, result positive (principal); O36.80X0 Pregnancy with inconclusive fetal viability, not applicable or unspecified

== ENCOUNTER 2021-10-21 10:55 | Outpatient (RCR) | payer MEDICAID | END 2021-10-26 | LOC: M OUTALCOH 10:55 | PROVIDERS: ATTEND Psychiatry & Neurology Psychiatry | DX: Z03.89 Encounter for observation for other suspected diseases and conditions ruled out (principal) ==